=== PATIENT | male | born 1995 | race Caucasian/White ===

== ENCOUNTER 2017-11-07 09:45 | Emergency (ER) | payer SELFPAY ==
[~2017-11-07] VITALS: Ht 190.5 cm; Wt 100.0 kg
[~2017-11-07 09:45] MED LIST: ZOLO50TA PO
[2017-11-07 09:56] VITALS: BP 136/70; PULSE 105; RESP 20; TEMP 98.5; O2SAT 96
--- NOTE | 2017-11-07 10:00 | PD ---
HPI Chief Complaint: Medical Clearance Time Seen by Provider: 09:59 Travel History International Travel<30 days: No Contact w/Intl Traveler<30days: No Traveled to known affect area: No History of Present Illness HPI 22-year-old male came to the emergency room with history of having a bad trip after smoking K2 this morning at 7 AM. Patient says that he started to hear voices and see things that were not there that really scared him. He lives in the house with his brother, brother's girlfriend and their one year old child. He was afraid that he might hurt the baby and hence left the house and went to a gas station. He called 911 since he didn't know what else to do. The police came and cleared him but he was brought to the emergency room by EMS. He says his head has started to clear up now. He looks very disheveled. He denies doing drugs on a regular basis. However upon asking patient does not remember the last time he ate a decent meal. He says he has been snacking in between. Patient was slightly tachycardic. He is answering questions appropriately at this point. Patient says he usually does not go to any doctors are emergency room and does not take any medications on a regular basis. No psych history. [facility] Past Medical History Narrative Medical List of his past medical, surgical, social and family history is reviewed from the nursing note. ADHD: No Cancer: No Cardiovascular Problems: No Diabetes: No Psychiatric: No Migraines: No Seizures: No Thyroid Disease: No Social History Alcohol Use: No Tobacco Use: Yes Substance Use: No Allergies-Medications (Allergen,Severity, Reaction): Coded Allergies: No Known Allergies (Unverified , 05/02/16) Comments No known drug allergies. Reported Meds & Prescriptions Reported Meds & Active Scripts Active No Active Prescriptions or Reported Medications Narrative Medication List of his home medications reviewed from the nursing note. Review of Systems Except as stated in HPI: all other systems reviewed are Neg Psychiatric: Positive: Substance Abuse Physical Exam Narrative GENERAL: Awake, alert, disheveled point, poor skin hygiene SKIN: Focused skin assessment warm/dry. Poor skin hygiene HEAD: Atraumatic. Normocephalic. EYES: Pupils equal and round. No scleral icterus. No injection or drainage. ENT: No nasal bleeding or discharge. Mucous membranes pink and moist. NECK: Trachea midline. No JVD. CARDIOVASCULAR: Regular rate and rhythm. No murmur appreciated. RESPIRATORY: No accessory muscle use. Clear to auscultation. Breath sounds equal bilaterally. GASTROINTESTINAL: Abdomen soft, non-tender, nondistended. Hepatic and splenic margins not palpable. MUSCULOSKELETAL: No obvious deformities. No clubbing. No cyanosis. No edema. NEUROLOGICAL: Awake and alert. No obvious cranial nerve deficits. Motor grossly within normal limits. Normal speech. PSYCHIATRIC: Appropriate mood and affect; insight and judgment normal. Data Data Last Documented VS Vital Signs Date Time Temp Pulse Resp B/P (MAP) Pulse Ox O2 Delivery O2 Flow Rate FiO2 11/07/17 11:41 11/07/17 11:03 90 16 97 11/07/17 09:56 98.5 Room Air Orders Orders Complete Blood Count With Diff (11/07/17 10:04) Basic Metabolic Panel (Bmp) (11/07/17 10:04) Sodium Chlor 0.9% 1000 Ml Inj (Ns 1000 M (11/07/17 10:15) Lorazepam (Ativan) (11/07/17 10:15) Blood Glucose (11/07/17 10:06) Ed Discharge Order (11/07/17 10:52) Labs Laboratory Tests Test 11/07/17 10:15 White Blood Count 11.4 TH/MM3 Red Blood Count 4.89 MIL/MM3 Hemoglobin 15.8 GM/DL Hematocrit 44.5 % Mean Corpuscular Volume 91.0 FL Mean Corpuscular Hemoglobin 32.4 PG Mean Corpuscular Hemoglobin Concent 35.6 % Red Cell Distribution Width 13.1 % Platelet Count 249 TH/MM3 Mean Platelet Volume 9.1 FL Neutrophils (%) (Auto) 71.8 % Lymphocytes (%) (Auto) 16.5 % Monocytes (%) (Auto) 7.2 % Eosinophils (%) (Auto) 3.9 % Basophils (%) (Auto) 0.6 % Neutrophils # (Auto) 8.2 TH/MM3 Lymphocytes # (Auto) 1.9 TH/MM3 Monocytes # (Auto) 0.8 TH/MM3 Eosinophils # (Auto) 0.4 TH/MM3 Basophils # (Auto) 0.1 TH/MM3 CBC Comment DIFF FINAL Differential Comment Blood Urea Nitrogen 11 MG/DL Creatinine 0.91 MG/DL Random Glucose 84 MG/DL Calcium Level 9.3 MG/DL Sodium Level 140 MEQ/L Potassium Level 4.4 MEQ/L Chloride Level 107 MEQ/L Carbon Dioxide Level 22.9 MEQ/L Anion Gap 10 MEQ/L Estimat Glomerular Filtration Rate 106 ML/MIN MDM Medical Decision Making Medical Screen Exam Complete: Yes Emergency Medical Condition: Yes Medical Record Reviewed: Yes Differential Diagnosis Substance-induced psychosis Narrative Course 10:50 AM patient was given 1 mg of by mouth Ativan and 1 L of IV fluid bolus. I 've also ordered a diet tray for him. Blood test results are back and they are within normal limits. I'm comfortable discharging him home at this point. Procedures EKG Prior to Arrival: No Diagnosis Primary Impression: Substance-induced psychotic disorder Referrals: Primary Care Physician 2 days Additional Instructions: Any illicit drugs including K2 is dangerous for you. Return to the ER if condition worsens or any other new concerns. Med/Other Pt SpecificInfo: No Meds Exist/No RX given Scripts No Active Prescriptions or Reported Meds Disposition: 01 DISCHARGE HOME Condition: Stable Castro Stacy MD Nov 07, 2017 10:00
[2017-11-07] MEDS ORDERED: SODIUM CHLOR 0.9% 1000 ML INJ 1,000 ML IV ONE (10:15)
[2017-11-07] MEDS ORDERED: LORazepam 1 MG TAB PO ONE (10:15)
[2017-11-07 10:33] LABS: AUTOMATED NEUTROPHIL # 8.2 TH/MM3 (1.8-7.7); BASOPHIL # 0.1 TH/MM3 (0-0.2); BASOPHIL % 0.6 % (0.0-2.0); EOSINOPHIL # 0.4 TH/MM3 (0-0.4); EOSINOPHIL % 3.9 % (0.0-4.0); HEMATOCRIT 44.5 % (39.0-51.0); HEMOGLOBIN 15.8 GM/DL (13.0-17.0); LYMPH % 16.5 % (9.0-44.0); LYMPHOCYTE # 1.9 TH/MM3 (1.0-4.8); MEAN CORPUSCULAR HEMOGLOBIN 32.4 PG (27.0-34.0); MEAN CORPUSCULAR HGB CONC 35.6 % (32.0-36.0); MEAN PLATELET VOLUME 9.1 FL (7.0-11.0); MONO % 7.2 % (0.0-8.0); MONOCYTE # 0.8 TH/MM3 (0-0.9); NEUT % 71.8 % (16.0-70.0); PLATELET COUNT 249 TH/MM3 (150-450); RED BLOOD COUNT 4.89 MIL/MM3 (4.50-5.90); RED CELL DISTRIBUTION WIDTH 13.1 % (11.6-17.2); WHITE BLOOD COUNT 11.4 TH/MM3 (4.0-11.0)
[2017-11-07 10:47] LABS: BICARBONATE 22.9 MEQ/L (21.0-32.0); CALCIUM 9.3 MG/DL (8.5-10.1); CREATININE 0.91 MG/DL (0.60-1.30)
[2017-11-07 11:03] VITALS: BP 124/86; PULSE 90; RESP 16; O2SAT 97
== END 2017-11-07 11:42 | disposition home or self-care (01) ==
LOC: NEPD 09:45
DX: F19.959 Other psychoactive substance use, unspecified with psychoactive substance-induced psychotic disorder, unspecified (principal); R00.0 Tachycardia, unspecified; Z72.0 Tobacco use
CPT/HCPCS: 80048; 85025; 99284; J7030